=== PATIENT | female | born 1995 | race Caucasian/White ===

== ENCOUNTER 2016-10-05 15:37 | Emergency (ER) | payer OTHER ==
[~2016-10-05] VITALS: Ht 165.1 cm; Wt 63.8 kg
[~2016-10-05 15:37] MED LIST: ENDOCET 5-3251 EACH PO; FOLIC ACID0.4 MG PO; IBUPROFEN800 MG PO; MOTRIN600 MG PO; PRENATAL TABLE1 EAC3 PO; SKELAXIN800 MG PO; SPRINTEC1 EACH PO; TRAMADOL HCL50 MG PO; TUMS500 MG PO; ZOLOFT25 MG PO
[2016-10-05 16:16] LABS: HEMATOCRIT 41.5 % (36.0-46.0); MCH 28.9 PG (29.0-34.0); MCHC 34.2 G/DL (30.0-36.0); MCV 84.5 FL (83-99); MEAN PLAT.VOLUME 11.1 uM^3 (9.5-12.4); PLATELET COUNT 297 K/uL (156-360); RBC DIS.WIDTH-CV 12.8 % (11.8-14.6); RBC DIS.WIDTH-SD 38.8 % (39-53); RED BLOOD COUNT 4.91 M/uL (3.80-5.20); WHITE BLOOD COUNT 9.2 K/uL (4.1-10.2)
[2016-10-05 16:23] LABS: CHLORIDE 107 mEq/L (99-109); POTASSIUM 4.4 mEq/L (3.7-5.4); SODIUM 141 mEq/L (136-147)
[2016-10-05 16:25] LABS: GLUCOSE 90 mg/dL (70-99)
[2016-10-05 16:27] LABS: ANION GAP 9 MEQ/L (2-14); TOTAL BILIRUBIN 0.4 mg/dL (0.0-1.0)
[2016-10-05 16:29] LABS: ALKALINE PHOSPHATASE 67 IU/L (3-129); GFR ESTIMATE (CALCULATED) > 59 mL/min/
[2016-10-05 16:29] LABS: ADD MIUA? NO; BILIRUBIN NEGATIVE; BLOOD NEGATIVE; COLOR YELLOW ((YELLOW)); GLUCOSE (STRIP) NEGATIVE; KETONES NEGATIVE; LEUKOCYTES NEGATIVE; NITRITE NEGATIVE; PH, URINE 6.5 (5-8); PROTEIN (STRIP) NEGATIVE; SPECIFIC GRAVITY 1.006 (1.000-1.030); UCUL ADDED? NO; UROBILINOGEN 0.2 MG/DL (0.2-1.0)
[2016-10-05 16:30] LABS: UREA NITROGEN (BUN) 12 mg/dL (9-23)
[2016-10-05 16:38] LABS: QUANTITATIVE HCG < 4.0 MIU/ML
[2016-10-05] MEDS ORDERED: ZOFRAN ODT4 MG PO (19:18)
[2016-10-05 21:52] VITALS: BP 110/75
== END 2016-10-05 21:40 | disposition home or self-care (01) ==
LOC: EME 15:37
DX: K43.9 Ventral hernia without obstruction or gangrene (principal); R10.12 Left upper quadrant pain; R11.0 Nausea
CPT/HCPCS: 74177; 80053; 81003; 84702; 85027; 99281; 99283; J1885; J7030

== ENCOUNTER 2017-02-19 03:34 | Emergency (ER) | payer OTHER ==
[~2017-02-19] VITALS: Ht 165.1 cm; Wt 63.1 kg
[~2017-02-19 03:34] MED LIST changes: +ZOFRAN ODT4 MG PO
[2017-02-19 04:03] LABS: HEMATOCRIT 43.5 % (36.0-46.0); MCH 28.7 PG (29.0-34.0); MCHC 32.9 G/DL (30.0-36.0); MCV 87.3 FL (83-99); PLATELET COUNT 225 K/uL (156-360); RBC DIS.WIDTH-CV 12.3 % (11.8-14.6); RBC DIS.WIDTH-SD 39.4 % (39-53); RED BLOOD COUNT 4.98 M/uL (3.80-5.20); WHITE BLOOD COUNT 9.9 K/uL (4.1-10.2)
[2017-02-19 04:27] LABS: CHLORIDE 104 mEq/L (99-109); POTASSIUM 4.3 mEq/L (3.7-5.4); SODIUM 138 mEq/L (136-147)
[2017-02-19 04:29] LABS: GLUCOSE 103 mg/dL (70-99)
[2017-02-19 04:30] LABS: ANION GAP 7 MEQ/L (2-14)
[2017-02-19 04:33] LABS: GFR ESTIMATE (CALCULATED) > 59 mL/min/; UREA NITROGEN (BUN) 14 mg/dL (9-23)
[2017-02-19 04:37] LABS: TROP-I INTERPRETATION NEGATIVE; TROPONIN-I < 0.01 ng/mL (0.0-0.30)
[2017-02-19] MEDS ORDERED: OMEPRAZOLE40 M1 PO (05:15)
[2017-02-19 05:42] VITALS: BP 122/89
== END 2017-02-19 05:43 | disposition home or self-care (01) ==
LOC: EME 03:34
DX: R07.89 Other chest pain (principal); R10.13 Epigastric pain; T47.8X6A Underdosing of other agents primarily affecting gastrointestinal system, initial encounter; Z91.128 Patient's intentional underdosing of medication regimen for other reason; Z87.19 Personal history of other diseases of the digestive system; Z98.890 Other specified postprocedural states
CPT/HCPCS: 71020; 80048; 84484; 85027; 93005; 99281; 99283

== ENCOUNTER 2018-04-28 02:51 | Emergency (ER) | payer OTHER ==
[~2018-04-28] VITALS: Ht 165.1 cm; Wt 66.4 kg
[~2018-04-28 02:51] MED LIST changes: +OMEPRAZOLE40 M1 PO
[2018-04-28 05:27] VITALS: BP 122/78
[2018-04-28 05:29] LABS: APPEARANCE CLEAR ((CLEAR)); BILIRUBIN NEGATIVE; BLOOD NEGATIVE; COLOR YELLOW ((YELLOW)); GLUCOSE (STRIP) NEGATIVE; KETONES NEGATIVE; LEUKOCYTES NEGATIVE; NITRITE NEGATIVE; PROTEIN (STRIP) NEGATIVE; SPECIFIC GRAVITY 1.011 (1.000-1.030); UCUL ADDED? NO; UROBILINOGEN 0.2 MG/DL (0.2-1.0)
[2018-04-28 05:39] LABS: AMPHETAMINE NEGATIVE (500 ng/mL); BARBITURATES NEGATIVE (200 ng/mL); BENZODIAZEPINES NEGATIVE (150 ng/mL); BUPRENORPHINE NEGATIVE (10 ng/mL); COCAINE NEGATIVE (150 ng/mL); METHADONE NEGATIVE (200 ng/mL); METHAMPHETAMINE NEGATIVE (500 ng/mL); OPIATES (MORPHINE) NEGATIVE (100 ng/mL); OXYCODONE NEGATIVE (100 ng/mL); PHENCYCLIDINE NEGATIVE (25 ng/mL); PROPOXYPHENE NEGATIVE (300 ng/mL); THC CANNABINOIDS NEGATIVE (50 ng/mL); TRICYCLIC ANTIDEPRESSANTS NEGATIVE (300 ng/mL)
== END 2018-04-28 05:28 | disposition home or self-care (01) ==
LOC: EME 02:51
PROVIDERS: Emergency Medicine
DX: F10.129 Alcohol abuse with intoxication, unspecified (principal); Y90.6 Blood alcohol level of 120-199 mg/100 ml; K21.9 Gastro-esophageal reflux disease without esophagitis; Z88.8 Allergy status to other drugs, medicaments and biological substances
CPT/HCPCS: 81003; 81025; 99281; 99285; G0480